=== PATIENT | female | born 1995 | race Caucasian/White ===

== ENCOUNTER 2018-08-15 08:58 | Inpatient (IN) | payer OTHER ==
[~2018-08-15] VITALS: Ht 167.6 cm; Wt 84.9 kg
[2018-08-15] VITALS (327 sets, daily range): BP systolic 95–121; BP diastolic 35–56; PULSE 101–113; TEMP 97.3–98.2; O2SAT 91–100
[~2018-08-15 08:58] MED LIST: NORCO 325 MG-51 TAB PO
[2018-08-15 10:08] LABS: BASO % 0.6 % (0.0-2.0); EOS % 0.6 % (0-4.0); GRAN # 3.2 (1.4-6.5); GRAN % 61.3 % (42.2-75.2); HEMATOCRIT 42.1 % (37.0-47.0); HEMOGLOBIN 14.1 g/dl (12.5-16.0); LYMPH # 0.9 (1.2-3.4); LYMPH % 17.1 % (20.0-51.0); MEAN CELL VOLUME 88 fl (80.0-100.0); MEAN CORPUSCULAR HEMOGLOBIN 30 pg (27.0-31.0); MEAN CORPUSCULAR HGB CONC 34 g/dl (33.0-37.0); MEAN PLATELET VOLUME 10.5 fl (7.4-10.4); MONO % 18.3 % (1.7-9.3); PLATELET COUNT 146 K/mm3 (130-400); RED BLOOD COUNT 4.78 M/mm3 (4.10-5.30); REDCELL DISTRIBUTION WIDTH-CV 12.3 % (11.5-14.5)
[2018-08-15 10:19] LABS: BILIRUBIN,TOTAL 0.3 mg/dL (0.0-1.0); CALCIUM 8.4 mg/dL (8.4-10.2); CREATININE, serum 0.79 mg/dL (0.52-1.25); POTASSIUM 3.7 mmol/L (3.4-5.0); TOTAL PROTEIN 7.2 gm/dL (6.4-8.2)
[2018-08-15 10:25] LABS: COLLECTION METHOD CLEAN CATCH
[2018-08-15 10:35] LABS: MUCOUS Present /lpf; PH 5 (5-8); SQUAMOUS EPITHELIAL 0-2 /hpf; URINE APPEARANCE Hazy; URINE BACTERIA None Seen /hpf; URINE BILIRUBIN Negative (NEGATIVE); URINE BLOOD Negative (NEGATIVE); URINE COLOR Yellow; URINE GLUCOSE Negative (NEGATIVE); URINE KETONE Negative (NEGATIVE); URINE LEUKOCYTE ESTERASE Trace (NEGATIVE); URINE NITRATE Negative (NEGATIVE); URINE PROTEIN(semi-quant) 2+ (NEGATIVE); URINE RBC 0-2 /hpf; URINE UROBILINOGEN Negative (NEGATIVE)
[2018-08-15 10:41] LABS: TRICYCLIC ANTIDEPRESS URINE NEGATIVE
[2018-08-16] VITALS (525 sets, daily range): BP systolic 103–117; BP diastolic 44–65; PULSE 98–110; TEMP 97.6–98.6; O2SAT 91–100
== END 2018-08-16 10:03 | disposition home or self-care (01) | DRG 918 ==
LOC: COL.ER 08:58 → ICU 11:00
PROVIDERS: Family Medicine
DX: T40.2X1A Poisoning by other opioids, accidental (unintentional), initial encounter (principal); G89.29 Other chronic pain; M54.9 Dorsalgia, unspecified
CPT/HCPCS: 99223-AI; 99239; J2310; J2405; J2550; J7030